=== PATIENT | male | born 1965 | race Caucasian/White ===

== ENCOUNTER 2017-09-13 18:54 | Emergency (ER) | payer MEDICAID ==
[~2017-09-13] VITALS: Ht 167.6 cm; Wt 70.5 kg
[2017-09-13] MEDS ORDERED: PERTUSS(ACELL),DIPH,TET VAC/PF 0.5 ML VIAL IM ONE (19:15)
[2017-09-13] MEDS ORDERED: LIDOCAINE HCL/PF 1% 30 ML VIAL INJ ONE (19:15)
[2017-09-13] MEDS ORDERED: HYDROCODONE/ACETAMINOPHEN 5-325 MG TABLET PO ONE (19:30)
[2017-09-13] MEDS ORDERED: IBUPROFEN 800 MG TABLET PO ONE (19:30)
[2017-09-13] MEDS ORDERED: CEPHALEXIN MONOHYDRATE 500 MG CAPSULE PO ONE (21:15)
[2017-09-13 21:25] VITALS: BP 141/92
== END 2017-09-13 21:26 | disposition home or self-care (01) ==
LOC: EMS 18:55
DX: S66.321A Laceration of extensor muscle, fascia and tendon of left index finger at wrist and hand level, initial encounter (principal); W45.8XXA Other foreign body or object entering through skin, initial encounter; Y93.89 Activity, other specified; Y92.89 Other specified places as the place of occurrence of the external cause; Y99.8 Other external cause status
CPT/HCPCS: 12042; 73140; 90471; 90715; 99284; J3490

== ENCOUNTER 2017-10-05 15:09 | Inpatient (IN) | payer MEDICAID ==
[~2017-10-05] VITALS: Ht 165.1 cm; Wt 68.8 kg
[2017-10-05] MEDS ORDERED: VANCOMYCIN HCL 1 GM/D5% WATER 200 ML IV ONE (16:15)
[2017-10-05 16:38] LABS: BASOPHILS % (AUTO) 0.6 % (0.0-2.0); EOSINOPHILS % (AUTO) 2.4 % (1.0-6.0); HEMATOCRIT 42.5 % (41-53); LYMPHOCYTES % (AUTO) 37.8 % (22.0-44.0); MEAN CORPUSCULAR HEMOGLOBIN 31.8 pg (26.0-34.0); MEAN CORPUSCULAR HGB CONC 35.2 G/dL (31.0-37.0); MEAN CORPUSCULAR VOLUME 90 fL (80-100); MONOCYTES # (AUTO) 1.1 K/uL (0.1-1.0); MONOCYTES % (AUTO) 10.1 % (2.0-9.0); NEUTROPHILS # (AUTO) 5.2 K/uL (1.8-7.7); NEUTROPHILS % (AUTO) 49.1 % (40.0-70.0); PLATELET COUNT (AUTO) 494 K/uL (150-450); RED CELL DISTRIBUTION WIDTH 13.2 % (11.5-14.5)
[2017-10-05 17:18] LABS: ANION GAP 6 mmol/L (8-16); CALCIUM, TOTAL 8.9 mg/dL (8.8-10.5); CARBON DIOXIDE 31 mmol/L (22-29); CHLORIDE 102 mmol/L (98-107); CREATININE 0.63 mg/dL (0.60-1.30); GLOMERULAR FILTR. RATE CALC > 60 mL/min (>60); GLUCOSE,RANDOM 91 mg/dL (70-110); POTASSIUM 4.2 mmol/L (3.5-5.1); SODIUM SERUM 139 mmol/L (136-145); UREA NITROGEN, BLOOD 13 mg/dL (7-18)
[2017-10-05 17:23] LABS: ALANINE AMINOTRANSFERASE 21 U/L (12-78); ALBUMIN 3.3 g/dL (3.4-5.0); ALKALINE PHOSPHATASE 104 U/L (46-116); ASPARTATE AMINOTRANSFERASE 13 U/L (15-37); BILIRUBIN,TOTAL 0.2 mg/dL (0.1-1.0); TOTAL PROTEIN, SERUM 7.1 g/dL (6.4-8.2)
[2017-10-05 18:03] LABS: INR 0.9 (0.9-1.1); PROTHROMBIN TIME 9.9 SEC (9.4-11.6)
[2017-10-05] MEDS ORDERED: ACETAMINOPHEN 325 MG TABLET PO PRN ×2 (18:45→22:30)
[2017-10-05] MEDS ORDERED: 0.9% SODIUM CHLORIDE 10 ML SYRINGE IVP PRN ×2 (18:45→22:30)
[2017-10-05] MEDS ORDERED: ONDANSETRON HCL 4 MG/2 ML VIAL IVP PRN ×2 (18:45→22:30)
[2017-10-05 20:31] VITALS: BP 131/80
[2017-10-05] MEDS ORDERED: OxyCODONE HCL/ACETAMINOPHEN 5-325 MG TABLET PO PRN (22:30)
[2017-10-05] MEDS ORDERED: ZOLPIDEM TARTRATE 5 MG TABLET PO PRN (22:30)
[2017-10-05] MEDS ORDERED: MORPHINE SULFATE 4 MG/ML SYRINGE IVP PRN (22:30)
[2017-10-05] MEDS ORDERED: SODIUM CHLORIDE 0.9% 500 ML IV ONE (23:26)
[2017-10-05] MEDS ORDERED: VANCOMYCIN HCL 500 MG in DEXTROSE 5%-WATER 100 ML IV ONE (23:30)
[2017-10-05] MEDS: CefTRIAXone SODIUM 1 GM in DEXTROSE 5%-WATER 10 ML IV SCH (23:34)
[2017-10-05] MEDS: HEPARIN SODIUM,PORCINE 5,000 UNITS/ML VIAL SQ SCH (23:37)
[2017-10-06 00:51] VITALS: BP 120/75
[2017-10-06 04:45] VITALS: BP 125/79
[2017-10-06 06:02] LABS: BASOPHILS % (AUTO) 0.6 % (0.0-2.0); EOSINOPHILS % (AUTO) 3.3 % (1.0-6.0); HEMATOCRIT 40.6 % (41-53); HEMOGLOBIN 14.4 g/dL (13.5-17.5); LYMPHOCYTES # (AUTO) 4.9 K/uL (1.0-4.8); LYMPHOCYTES % (AUTO) 44.6 % (22.0-44.0); MEAN CORPUSCULAR HEMOGLOBIN 31.9 pg (26.0-34.0); MEAN CORPUSCULAR HGB CONC 35.4 G/dL (31.0-37.0); MEAN CORPUSCULAR VOLUME 90 fL (80-100); MONOCYTES % (AUTO) 9.5 % (2.0-9.0); NEUTROPHILS # (AUTO) 4.6 K/uL (1.8-7.7); PLATELET COUNT (AUTO) 471 K/uL (150-450); RED BLOOD CELL COUNT(AUTO) 4.52 MIL/uL (4.50-5.90)
[2017-10-06 06:14] LABS: ALANINE AMINOTRANSFERASE 24 U/L (12-78); ALKALINE PHOSPHATASE 82 U/L (46-116); ANION GAP 6 mmol/L (8-16); ASPARTATE AMINOTRANSFERASE 8 U/L (15-37); BILIRUBIN,TOTAL 0.3 mg/dL (0.1-1.0); CALCIUM, TOTAL 8.3 mg/dL (8.8-10.5); CARBON DIOXIDE 30 mmol/L (22-29); CHLORIDE 103 mmol/L (98-107); CREATININE 0.74 mg/dL (0.60-1.30); GLOMERULAR FILTR. RATE CALC > 60 mL/min (>60); GLUCOSE,RANDOM 98 mg/dL (70-110); POTASSIUM 3.7 mmol/L (3.5-5.1); SODIUM SERUM 139 mmol/L (136-145); TOTAL PROTEIN, SERUM 6.4 g/dL (6.4-8.2); UREA NITROGEN, BLOOD 11 mg/dL (7-18)
[2017-10-06 08:00] VITALS: BP 131/75
[2017-10-06] MEDS: HEPARIN SODIUM,PORCINE 5,000 UNITS/ML VIAL SQ SCH ×2 (08:00→15:49)
[2017-10-06] MEDS: PANTOPRAZOLE SODIUM 40 MG DR TABLET PO SCH (08:30)
[2017-10-06] MEDS: VANCOMYCIN HCL 1.25 GM in DEXTROSE 5%-WATER 250 ML IV SCH ×2 (08:31→15:49)
[2017-10-06] MEDS ORDERED: RINGERS SOLUTION,LACTATED 1,000 ML IV ONE (10:00)
[2017-10-06 11:27] VITALS: BP 130/78
[2017-10-06 15:45] VITALS: BP 108/76
[2017-10-06 19:40] VITALS: BP 122/74
[2017-10-06] MEDS: CefTRIAXone SODIUM 1 GM in DEXTROSE 5%-WATER 10 ML IV SCH (23:09)
[2017-10-07] MEDS: VANCOMYCIN HCL 1.25 GM in DEXTROSE 5%-WATER 250 ML IV SCH ×2 (00:05→08:43)
[2017-10-07] MEDS: HEPARIN SODIUM,PORCINE 5,000 UNITS/ML VIAL SQ SCH ×2 (00:05→08:44)
[2017-10-07 00:18] VITALS: BP 123/70
[2017-10-07 04:30] VITALS: BP 125/76
[2017-10-07 06:50] LABS: ANION GAP 9 mmol/L (8-16); CALCIUM, TOTAL 8.2 mg/dL (8.8-10.5); CARBON DIOXIDE 26 mmol/L (22-29); CHLORIDE 103 mmol/L (98-107); CREATININE 0.76 mg/dL (0.60-1.30); GLOMERULAR FILTR. RATE CALC > 60 mL/min (>60); GLUCOSE,RANDOM 94 mg/dL (70-110); POTASSIUM 3.9 mmol/L (3.5-5.1); SODIUM SERUM 138 mmol/L (136-145); UREA NITROGEN, BLOOD 12 mg/dL (7-18); VANCOMYCIN,RANDOM 19.1 mcg/mL (25.0-50.0)
[2017-10-07 08:07] VITALS: BP 124/79
[2017-10-07] MEDS: PANTOPRAZOLE SODIUM 40 MG DR TABLET PO SCH (08:44)
[2017-10-07] MEDS ORDERED: SULF1TAB42 PO (10:37)
[2017-10-07 11:19] VITALS: BP 106/63
== END 2017-10-07 12:40 | disposition home or self-care (01) | DRG 383 ==
LOC: EMS 15:10 → 6N 18:39
PROVIDERS: ADMIT Internal Medicine; ATTEND Internal Medicine
DX: L03.012 Cellulitis of left finger (principal); F17.200 Nicotine dependence, unspecified, uncomplicated; S66.321D Laceration of extensor muscle, fascia and tendon of left index finger at wrist and hand level, subsequent encounter; X58.XXXA Exposure to other specified factors, initial encounter; Y93.89 Activity, other specified; Y92.89 Other specified places as the place of occurrence of the external cause; Y99.8 Other external cause status
CPT/HCPCS: 83735; 85651; 86140; 86850; 86900; 86901; 99285; J0696; J1644; J3370; J7040; J7060

== ENCOUNTER 2017-10-24 17:04 | Emergency (ER) | payer SELFPAY ==
[~2017-10-24] VITALS: Ht 167.6 cm; Wt 75.0 kg
[~2017-10-24 17:04] MED LIST: SULF1TAB42 PO
[2017-10-24 18:42] VITALS: BP 140/77
[2017-10-24] MEDS ORDERED: IBUPROFEN 600 MG TABLET PO ONE (19:00)
[2017-10-24] MEDS ORDERED: HYDROCODONE/ACETAMINOPHEN 5-325 MG TABLET PO ONE (19:00)
== END 2017-10-24 19:23 | disposition home or self-care (01) ==
LOC: EMS 17:05
DX: S92.351A Displaced fracture of fifth metatarsal bone, right foot, initial encounter for closed fracture (principal); S93.401A Sprain of unspecified ligament of right ankle, initial encounter; R03.0 Elevated blood-pressure reading, without diagnosis of hypertension; W17.89XA Other fall from one level to another, initial encounter; Y93.89 Activity, other specified; Y92.89 Other specified places as the place of occurrence of the external cause; Y99.8 Other external cause status
CPT/HCPCS: 29515; 99284

== ENCOUNTER 2019-09-11 16:52 | Emergency (ER) | payer MEDICAID ==
[~2019-09-11] VITALS: Ht 170.2 cm; Wt 62.7 kg
[2019-09-11] MEDS ORDERED: IOVERSOL 350 MG/ML 100 ML VIAL ONE (17:11)
[2019-09-11] MEDS ORDERED: SODIUM CHLORIDE 0.9% 100 ML ONE (17:11)
[2019-09-11] MEDS ORDERED: FentaNYL CITRATE-PF 100 MCG/2 ML VIAL IVP ONE (17:15)
[2019-09-11 17:28] LABS: BASOPHILS % (AUTO) 0.3 % (0.0-2.0); EOSINOPHILS % (AUTO) 0.4 % (1.0-6.0); HEMATOCRIT 44.7 % (41-53); HEMOGLOBIN 14.7 g/dL (13.5-17.5); LYMPHOCYTES # (AUTO) 1.7 K/uL (1.0-4.8); MEAN CORPUSCULAR HEMOGLOBIN 30.6 pg (26.0-34.0); MEAN CORPUSCULAR VOLUME 93 fL (80-100); MONOCYTES # (AUTO) 0.7 K/uL (0.1-1.0); MONOCYTES % (AUTO) 5.5 % (2.0-9.0); NEUTROPHILS # (AUTO) 9.8 K/uL (1.8-7.7); NEUTROPHILS % (AUTO) 79.8 % (40.0-70.0); PLATELET COUNT (AUTO) 299 K/uL (150-450); RED BLOOD CELL COUNT(AUTO) 4.82 MIL/uL (4.50-5.90); RED CELL DISTRIBUTION WIDTH 13.1 % (11.5-14.5)
[2019-09-11 17:47] LABS: ANION GAP 8 mmol/L (8-16); CALCIUM, TOTAL 8.7 mg/dL (8.8-10.5); CARBON DIOXIDE 26 mmol/L (22-29); CHLORIDE 103 mmol/L (98-107); CREATININE 0.79 mg/dL (0.60-1.30); GLOMERULAR FILTR. RATE CALC > 60 mL/min (>60); GLUCOSE,RANDOM 99 mg/dL (70-110); POTASSIUM 3.9 mmol/L (3.5-5.1); SODIUM SERUM 137 mmol/L (136-145); UREA NITROGEN, BLOOD 12 mg/dL (7-18)
[2019-09-11 17:49] LABS: PROTHROMBIN TIME 10.7 SEC (9.4-11.6)
[2019-09-11 17:53] LABS: ALANINE AMINOTRANSFERASE 38 U/L (12-78); ALBUMIN 3.9 g/dL (3.4-5.0); ALKALINE PHOSPHATASE 87 U/L (46-116); ASPARTATE AMINOTRANSFERASE 28 U/L (15-37); BILIRUBIN,TOTAL 0.2 mg/dL (0.1-1.0); LIPASE 389 U/L (73-393); TOTAL PROTEIN, SERUM 7.1 g/dL (6.4-8.2)
[2019-09-11] MEDS ORDERED: OFLOXACIN 0.3% 5 ML OPHTHALMIC SOLUTION OD ONE (19:00)
[2019-09-11] MEDS ORDERED: MORPHINE SULFATE 2 MG/ML SYRINGE IVP ONE ×2 (19:15→19:45)
[2019-09-11 19:55] VITALS: BP 158/92
== END 2019-09-11 21:11 | disposition short-term general hospital (02) ==
LOC: EMS 16:59
DX: S32.019A Unspecified fracture of first lumbar vertebra, initial encounter for closed fracture (principal); S22.41XA Multiple fractures of ribs, right side, initial encounter for closed fracture; S22.071A Stable burst fracture of T9-T10 vertebra, initial encounter for closed fracture; W14.XXXA Fall from tree, initial encounter; Y93.89 Activity, other specified; Y92.89 Other specified places as the place of occurrence of the external cause; Y99.8 Other external cause status
CPT/HCPCS: 36415; 70450; 71045; 71260; 72125; 72128; 72131; 74177; 80053; 83690; 85025; 85610; 85730; 96374; 96375; 99291; J2270; J7050; Q9967; 72193; 74160

== ENCOUNTER 2020-02-25 00:08 | Emergency (ER) | payer MEDICAID ==
[~2020-02-25] VITALS: Ht 170.2 cm; Wt 72.7 kg
[2020-02-25] MEDS ORDERED: IBUPROFEN 600 MG TABLET PO ONE (00:45)
[2020-02-25 01:56] VITALS: BP 132/84
== END 2020-02-25 02:04 | disposition home or self-care (01) ==
LOC: EMS 00:08
DX: S90.31XA Contusion of right foot, initial encounter (principal); F12.90 Cannabis use, unspecified, uncomplicated; W20.8XXA Other cause of strike by thrown, projected or falling object, initial encounter; Y93.89 Activity, other specified; Y92.89 Other specified places as the place of occurrence of the external cause; Y99.8 Other external cause status

== ENCOUNTER 2021-10-02 12:42 | Emergency (ER) | payer MEDICAID ==
[~2021-10-02] VITALS: Ht 172.7 cm; Wt 77.3 kg
[2021-10-02] MEDS ORDERED: PROPARACAINE HCL 0.5% 15 ML OPHTHALMIC SOLUTION OU ONE (13:30)
[2021-10-02] MEDS ORDERED: FLUORESCEIN SODIUM 1 MG STRIP OU ONE (13:30)
[2021-10-02] MEDS ORDERED: HYDROCODONE/ACETAMINOPHEN 5-325 MG TABLET PO ONE (13:30)
[2021-10-02] MEDS ORDERED: OFLO35OS OU (13:46)
[2021-10-02 14:05] VITALS: BP 148/78
== END 2021-10-02 15:15 | disposition home or self-care (01) ==
LOC: EMS 12:42
DX: H57.89 Other specified disorders of eye and adnexa (principal); F12.90 Cannabis use, unspecified, uncomplicated
CPT/HCPCS: 99283

== ENCOUNTER 2022-06-22 12:27 | Emergency (ER) | payer MEDICAID, OTHER ==
[~2022-06-22] VITALS: Ht 167.6 cm; Wt 75.0 kg
[~2022-06-22 12:27] MED LIST changes: +OFLO35OS OU; -SULF1TAB42 PO
[2022-06-22 13:17] VITALS: BP 144/82
[2022-06-22] MEDS ORDERED: HYDROCODONE/ACETAMINOPHEN 5-325 MG TABLET PO ONE (15:15)
[2022-06-22] MEDS ORDERED: PERTUSS(ACELL),DIPH,TET VAC/PF 0.5 ML SYRINGE IM. ONE (15:15)
[2022-06-22] MEDS ORDERED: LIDOCAINE/PRILOCAINE 2.5% 30 GM CREAM TP ONE (15:45)
[2022-06-22 15:50] LABS: BASOPHILS % (AUTO) 0.6 % (0.0-2.0); EOSINOPHILS % (AUTO) 1.8 % (1.0-6.0); HEMATOCRIT 48.1 % (41-53); LYMPHOCYTES # (AUTO) 3.4 K/uL (1.0-4.8); MEAN CORPUSCULAR HEMOGLOBIN 30.9 pg (26.0-34.0); MEAN CORPUSCULAR HGB CONC 33.3 G/dL (31.0-37.0); MEAN CORPUSCULAR VOLUME 93 fL (80-100); MONOCYTES % (AUTO) 10.2 % (2.0-9.0); NEUTROPHILS # (AUTO) 5.4 K/uL (1.8-7.7); NEUTROPHILS % (AUTO) 53.4 % (40.0-70.0); PLATELET COUNT (AUTO) 362 K/uL (150-450); RED BLOOD CELL COUNT(AUTO) 5.17 MIL/uL (4.50-5.90); RED CELL DISTRIBUTION WIDTH 13.3 % (11.5-14.5)
[2022-06-22 16:00] LABS: ANION GAP 7 mmol/L (8-16); CALCIUM, TOTAL 8.3 mg/dL (8.8-10.5); CARBON DIOXIDE 25 mmol/L (22-29); CHLORIDE 103 mmol/L (98-107); CREATININE 0.72 mg/dL (0.60-1.30); GLUCOSE,RANDOM 106 mg/dL (70-110); POTASSIUM 4.3 mmol/L (3.5-5.1); SODIUM SERUM 135 mmol/L (136-145); UREA NITROGEN, BLOOD 17 mg/dL (7-18)
[2022-06-22 16:01] LABS: GLOMERULAR FILTR. RATE CALC > 60 mL/min (>60)
[2022-06-22 16:09] LABS: LACTIC ACID 0.9 mmol/L (0.4-2.0)
[2022-06-22] MEDS ORDERED: SULF-261 PO (17:34)
== END 2022-06-22 17:54 | disposition home or self-care (01) ==
LOC: EMS 12:39
DX: L03.011 Cellulitis of right finger (principal); F12.90 Cannabis use, unspecified, uncomplicated
CPT/HCPCS: 80048; 83605; 85025; 90471; 90715; 99284

== ENCOUNTER 2022-07-02 13:16 | Emergency (ER) | payer OTHER ==
[~2022-07-02] VITALS: Ht 170.2 cm; Wt 71.4 kg
[~2022-07-02 13:16] MED LIST changes: -OFLO35OS OU; +SULF-261 PO
[2022-07-02 13:22] VITALS: BP 120/73
[2022-07-02] MEDS ORDERED: CEPH-558 PO (13:40)
[2022-07-02] MEDS ORDERED: SULF-261 PO (13:40)
[2022-07-02] MEDS ORDERED: SULFAMETHOX/TRIMETH DS 800-160 MG/TABLET PO ONE (13:45)
[2022-07-02] MEDS ORDERED: CEPHALEXIN MONOHYDRATE 500 MG CAPSULE PO ONE (13:45)
== END 2022-07-02 14:12 | disposition home or self-care (01) ==
LOC: EMS 13:26
DX: L03.011 Cellulitis of right finger (principal); F12.90 Cannabis use, unspecified, uncomplicated; Z76.0 Encounter for issue of repeat prescription; Z98.890 Other specified postprocedural states
CPT/HCPCS: 99281; Z7502; Z7610

== ENCOUNTER 2022-07-07 14:06 | Emergency (ER) | payer OTHER ==
[~2022-07-07] VITALS: Ht 165.1 cm; Wt 68.2 kg
[~2022-07-07 14:06] MED LIST changes: +CEPH-558 PO
[2022-07-07 15:45] VITALS: BP 140/64
== END 2022-07-07 15:56 | disposition home or self-care (01) ==
LOC: EMS 14:07
DX: Z48.00 Encounter for change or removal of nonsurgical wound dressing (principal); F12.90 Cannabis use, unspecified, uncomplicated; Z79.899 Other long term (current) drug therapy
CPT/HCPCS: 99281; Z7502